=== PATIENT | male | born 1945 | race Caucasian/White ===

== ENCOUNTER → 2025-06-22 | Day surgery (SDC) | payer MEDICARE, OTHER ==
[~2025-06-22] MED LIST: AMLODIPINE BESY10 MG PO; K-DUR10 MEQ PO; LACTATED RINGER'S 1,000 ML ONE; LOSARTAN-HCTZ1 EAC2 PO; MULTI-VITAMIN1 EACH PO; NORCO 7.5-3251 EACH PO; PROPOFOL IV EMULSION 10 MG/ML 20 ML VIAL ONE; SPIRONOLACTONE25 MG PO; VITAMIN C1000 MG PO; XARELTO10 MG PO
[2025-06-22 09:42] LABS: BASOPHILS % 0.5 % (0.0-1.0); EOSINOPHILS % 0.1 % (0.0-6.0); LYMPHOCYTES % 10.7 % (18.0-39.1); MONOCYTES % 5.6 % (4.4-11.3); NEUTROPHILS % 82.9 % (38.7-80.0); RED CELL DISTRIBUTION WIDTH 12.7 % (11.7-14.4)
[2025-06-22 10:35] VITALS: TEMP 98.9
[2025-06-22 11:05] VITALS: BP 150/89; PULSE 66; RESP 16; O2SAT 99
== END | disposition home or self-care (01) ==
LOC: OR 08:14
PROVIDERS: ATTEND Internal Medicine Gastroenterology
DX: Z09 Encounter for follow-up examination after completed treatment for conditions other than malignant neoplasm (principal); D12.5 Benign neoplasm of sigmoid colon; K57.30 Diverticulosis of large intestine without perforation or abscess without bleeding; K64.8 Other hemorrhoids; I10 Essential (primary) hypertension; F32.A Depression, unspecified; Z78.9 Other specified health status; Z79.899 Other long term (current) drug therapy; Z68.27 Body mass index [BMI] 27.0-27.9, adult; Z71.3 Dietary counseling and surveillance
CPT/HCPCS: 36415; 45385; 85025; 88305; 93005; J2704; J7121; 45378